=== PATIENT | male | born 1965 | race Caucasian/White ===

== ENCOUNTER 2021-12-20 01:05 | Emergency (ER) | payer SELFPAY ==
[2021-12-20 01:44] LABS: Hemoglobin 11.6 g/dL (14.0-18.0); Mean Corpuscular HGB CONC 33.8 g/dL (32.0-36.0); Mean Corpuscular Volume 97.5 fl (78.0-98.0); Mean Platelet Volume 9.1 fL (7.4-10.4); Platelet Count 303 thou/uL (130-400); RBC Distribution Width 11.2 % (11.5-14.5); Red Blood Cell (RBC) Count 3.53 mill/uL (4.70-6.10)
[2021-12-20 01:51] LABS: ALT (SGPT) 21 U/L (8-55); AST (SGOT) 14 U/L (5-34); Albumin 4.1 g/dL (3.5-5.0); Alkaline Phosphatase 54 U/L (40-110); Anion Gap 14 mmol/L (10-20); BUN (Urea Nitrogen) 19 mg/dL (8.4-25.7); Bilirubin, Total 0.8 mg/dL (0.2-1.2); Calc. Creatinine Clearance 0 mL/min (70-130); Calcium 9.2 mg/dL (7.8-10.44); Carbon Dioxide 24 mmol/L (22-29); Chloride 102 mmol/L (98-107); Estimated GFR 69; Globulin 2.2 g/dL (2.4-3.5); Glucose 215 mg/dL (70-105); Potassium 4.7 mmol/L (3.5-5.1); Protein, Total 6.3 g/dL (6.0-8.3); Sodium 135 mmol/L (136-145)
[2021-12-20] MEDS ORDERED: Morphine 4 MG/ML VIAL ONE ×2 (01:51→05:03)
[2021-12-20 02:03] LABS: Band 2 % (5-11); Lymphocytes 4 % (21-51); MDiff Complete? YES; Monocytes 2 % (0-10); Neutrophil 92 % (42-75); Platelet Morphology Comment Appears Adequate; RBC Morphology Normal
[2021-12-20] MEDS ORDERED: Ondansetron PF 4 MG/2 ML Vial ONE ×2 (02:05→05:47)
[2021-12-20] MEDS ORDERED: cefTRIAXone\\ROCEPHIN 2 GM VIAL ONE (02:41)
[2021-12-20] MEDS ORDERED: Vancomycin 1 GM/200 ML BAG ONE (03:39)
[2021-12-20 06:10] LABS: Lactic Acid 1.4 mmol/L (0.5-2.2)
[2021-12-20] MEDS ORDERED: Promethazine HCl 12.5 MG in Sodium Chloride 0.9% 50 ML IVPB SCH (06:45)
[2021-12-20] MEDS ORDERED: Cefepime 2 GM in Sodium Chloride 0.9% 100 ML IVPB SCH (06:45)
[2021-12-20] MEDS ORDERED: Iopamidol-370 76% 500 ML 1 ML ONE (12:23)
== END 2021-12-20 09:07 | disposition short-term general hospital (02) ==
LOC: ERS 01:05
DX: N99.840 Postprocedural hematoma of a genitourinary system organ or structure following a genitourinary system procedure (principal); I95.9 Hypotension, unspecified; K21.9 Gastro-esophageal reflux disease without esophagitis; I10 Essential (primary) hypertension; Z79.899 Other long term (current) drug therapy
CPT/HCPCS: 36415; 74177; 80053; 83605; 84484; 85025; 87040; 93005; 96361; 96365; 96366; 96367; 96375; 96376; J0696; J2270; J2405; J2550; J3370; Q9967

== ENCOUNTER 2022-09-23 07:26 | Outpatient (CLI) | payer OTHER | END 2022-09-23 07:27 | disposition home or self-care (01) | LOC: BICULT 07:26 | PROVIDERS: ATTEND Nurse Practitioner Family | DX: R22.31 Localized swelling, mass and lump, right upper limb (principal) | CPT/HCPCS: 76999 ==